=== PATIENT | female | born 1995 | race Caucasian/White ===

== ENCOUNTER 2021-07-05 01:20 | Emergency (ER) | payer OTHER, SELFPAY ==
[2021-07-05] VITALS (11 sets, daily range): BP systolic 118–143; BP diastolic 85–101; PULSE 75–84; RESP 14–18; TEMP 36.2; O2SAT 97–100
--- NOTE | 2021-07-05 02:23 | ED_ITS ---
HPI - General Adult General Chief complaint: Unspecified Stated complaint: throat swelling Time Seen by Provider: 07/05/21 02:07 History of Present Illness HPI narrative: Patient is a 25-year-old female presents emergency department with chief complaint of sore throat. Patient reports she recently was diagnosed with COVID-19 reports that she has had soreness in her throat that is been full had a strep test about a week ago that was negative and was treated with short course of steroids. Patient reports he is able to swallow just has discomfort whenever she does denies stridor denies shortness of breath does state that occasionally she feels a little short of breath Related Data Allergies Allergy/AdvReac Type Severity Reaction Status Date / Time No Known Allergies Allergy Verified 07/05/21 01:33 Review of Systems Review of Systems: A 10 system review of systems was completed on the patient and is negative except for what is stated in the HPI. Nursing and ancillary documentation was reviewed. Exam Narrative: GENERAL: Well-appearing, well-nourished, and in no acute distress. HEAD: Normocephalic, atraumatic. EYES: PERRLA and EOMI. ENT: Nares clear, no rhinorrhea or epistaxis. Mucous membranes moist. NECK: Supple. CHEST: Clear to auscultation. No respiratory distress. HEART: Regular rate and rhythm. No murmur heard. Normal peripheral pulses. ABDOMEN: Soft, nontender, nondistended, normal active bowel sounds. EXTREMITIES: Normal range of motion. No edema. SKIN: Warm, dry, no rash. NEURO: No focal deficits. Alert and oriented x3. PSYCH: Normal mood and affect. Course Vital Signs Vital signs: Vital Signs Temperature 36.2 C L 07/05/21 01:29 Pulse Rate 75 07/05/21 01:29 Respiratory Rate 18 07/05/21 01:29 Blood Pressure 143/100 H 07/05/21 01:29 Pulse Oximetry 100 07/05/21 01:29 Temperature 36.2 C L 07/05/21 01:29 Pulse Rate 75 07/05/21 01:29 Respiratory Rate 18 07/05/21 01:29 Blood Pressure 122/90 07/05/21 02:31 Pulse Oximetry 97 07/05/21 02:31 Medical Decision Making Vital Signs Vital Signs: Vital Signs Temperature 36.2 C L 01/26/22 01:29 Pulse Rate 75 07/05/21 01:29 Respiratory Rate 18 07/05/21 01:29 Blood Pressure 143/100 H 07/05/21 01:29 Pulse Oximetry 100 07/05/21 01:29 Temperature 36.2 C L 07/05/21 01:29 Pulse Rate 75 07/05/21 01:29 Respiratory Rate 18 07/05/21 01:29 Blood Pressure 122/90 07/05/21 02:31 Pulse Oximetry 97 07/05/21 02:31 Lab Data Labs: Strep Screen Presumptive Negative *(Reference Range: Negative)* Discharge Plan Discharge Clinical Impression: Pharyngitis Patient Disposition: Home, Self-Care Condition: Stable Instructions: Antibiotic Form, Pharyngitis (ED), COVID-19 (Coronavirus Disease 2019) (ED) Follow-up/Referrals: PHYSICIAN,[employer] [Primary Care Provider] - Prashant Obando MD [Physician] -
[2021-07-05] MEDS: BENZONATATE 100 MG CAPSULE 200 MG PO (02:59)
[2021-07-05] MEDS: predniSONE 20 MG TABLET 60 MG PO (02:59)
== END 2021-07-05 03:02 | disposition home or self-care (01) ==
PROVIDERS: Emergency Provider Emergency Medicine
DX: U07.1 COVID-19 (principal); J02.9 Acute pharyngitis, unspecified
CPT/HCPCS: 87081; 87880; 99283; A9270; J7512